=== PATIENT | female | born 1985 | race African-American/Black ===

== ENCOUNTER 2017-02-19 13:50 | Emergency (ER) | payer MEDICAID ==
[2009-10-22 06:06] VITALS: BMI 23.5
[2017-02-19 15:08] LABS: BASOPHILS 0.6 % (0-2); HEMOGLOBIN 11.1 g/dL (12-16); MCH 28.1 pg (26.0-34.0); MCHC 32.6 g/dL (31.0-37.0); MCV 86.1 fL (80.0-100.0); MEAN PLATELET VOLUME 10.3 fL (7.4-10.4); MONOCYTES 10.5 % (2-11); NEUTROPHILS 45.9 % (40-80); PLATELET COUNT 243 10x3/uL (130-400); RBC 3.95 10x6/uL (4.00-5.40); RDW 12.8 % (11.5-14.5); WBC 5.1 10x3/uL (4.8-10.8)
[2017-02-19 15:16] LABS: HCG SERUM NEGATIVE (NEGATIVE)
[2017-02-19 15:22] LABS: ALBUMIN 3.5 g/dL (3.4-5.0); ALKALINE PHOSPHATASE 60 U/L (46-116); ALT (SGPT) 13 U/L (10-68); BILIRUBIN - TOTAL 0.51 mg/dL (0.2-1.3); CALC OSMOLALITY 275 mosm/kg (275-300); CALCIUM 8.6 mg/dL (8.5-10.1); CHLORIDE - SERUM 106 mmol/L (98-107); CREATININE - SERUM 0.6 mg/dL (0.6-1.3); GLUCOSE 76 mg/dL (74-106); POTASSIUM - SERUM 3.4 mmol/L (3.5-5.1); PROTEIN - SERUM 6.8 g/dL (6.4-8.2); SODIUM 140 mmol/L (136-145); UREA NITROGEN 7 mg/dL (7-18); eGFR NON AFRICAN AMERICAN > 90 mL/min (90-120)
== END 2017-02-19 14:15 | disposition left against medical advice (07) ==
LOC: D.ER 13:50
PROVIDERS: Family Medicine
DX: R53.1 Weakness (principal)

== ENCOUNTER 2017-02-25 19:04 | Emergency (ER) | payer MEDICAID ==
[2009-10-22 06:06] VITALS: BMI 23.5
== END 2017-02-25 21:20 | disposition home or self-care (01) ==
LOC: D.ER 19:04
DX: D64.9 Anemia, unspecified (principal); F17.200 Nicotine dependence, unspecified, uncomplicated

== ENCOUNTER 2017-09-11 22:43 | Emergency (ER) | payer MEDICAID ==
[2009-10-22 06:06] VITALS: BMI 23.5
== END 2017-09-12 00:05 | disposition home or self-care (01) ==
LOC: D.ER 22:43
DX: J11.1 Influenza due to unidentified influenza virus with other respiratory manifestations (principal); R11.0 Nausea; F17.200 Nicotine dependence, unspecified, uncomplicated; R05 Cough; R09.89 Other specified symptoms and signs involving the circulatory and respiratory systems

== ENCOUNTER 2018-02-26 06:36 | Emergency (ER) | payer MEDICAID ==
[~2018-02-26] VITALS: Ht 170.2 cm; Wt 68.2 kg
[2018-02-26 06:43] VITALS: Ht 170.2 cm; Wt 68.2 kg
[2018-02-26] MEDS ORDERED: ATIVAN1 MG PO (07:47)
[2018-02-26 08:07] VITALS: BP 121/73
== END 2018-02-26 08:21 | disposition home or self-care (01) ==
LOC: D.ER 06:36
DX: F41.0 Panic disorder [episodic paroxysmal anxiety] (principal); R00.2 Palpitations; F17.200 Nicotine dependence, unspecified, uncomplicated

== ENCOUNTER 2018-11-09 12:46 | Emergency (ER) | payer MEDICAID ==
[~2018-11-09] VITALS: Ht 170.2 cm; Wt 77.3 kg
[~2018-11-09 12:46] MED LIST: ATIVAN1 MG PO
[2018-11-09 12:56] VITALS: Ht 170.2 cm; Wt 77.3 kg
[2018-11-09 13:19] LABS: APPEARANCE CLEAR (CLEAR); BILIRUBIN NEGATIVE (NEGATIVE); COLOR YELLOW (YELLOW); GLUCOSE NEGATIVE (NEGATIVE); KETONE NEGATIVE (NEGATIVE); NITRITE NEGATIVE (NEGATIVE); PROTEIN NEGATIVE (NEGATIVE)
[2018-11-09 13:22] LABS: HCG URINE NEGATIVE (NEGATIVE)
[2018-11-09 13:28] LABS: BASOPHILS 0.8 % (0-2); EOSINOPHILS 3.7 % (0-7); HEMATOCRIT 36.5 % (36.0-48.0); HEMOGLOBIN 12.1 g/dL (12-16); IMMATURE GRANULOCYTES 0.2 % (0-5); LYMPHOCYTES 42.3 % (15-50); MCH 28.3 pg (26.0-34.0); MCHC 33.2 g/dL (31.0-37.0); MCV 85.5 fL (80.0-100.0); MONOCYTES 9.2 % (2-11); NEUTROPHILS 43.8 % (40-80); PLATELET COUNT 264 10x3/uL (130-400); RBC 4.27 10x6/uL (4.00-5.40)
[2018-11-09 13:43] LABS: ALBUMIN 3.6 g/dL (3.4-5.0); ALKALINE PHOSPHATASE 68 U/L (46-116); ALT (SGPT) 15 U/L (10-68); CALC OSMOLALITY 271 mosm/kg (275-300); CALCIUM 8.5 mg/dL (8.5-10.1); CARBON DIOXIDE 30.5 mmol/L (21.0-32.0); CHLORIDE - SERUM 103 mmol/L (98-107); CREATININE - SERUM 0.7 mg/dL (0.6-1.3); GLUCOSE 80 mg/dL (74-106); POTASSIUM - SERUM 3.9 mmol/L (3.5-5.1); PROTEIN - SERUM 7.9 g/dL (6.4-8.2); SODIUM 137 mmol/L (136-145); UREA NITROGEN 9 mg/dL (7-18); eGFR NON AFRICAN AMERICAN > 90 mL/min (90-120)
[2018-11-09] MEDS ORDERED: TORADOL10 MG PO (17:01)
[2018-11-09 17:37] VITALS: BP 133/54
== END 2018-11-09 17:39 | disposition home or self-care (01) ==
LOC: D.ER 12:46
PROVIDERS: Family Medicine
DX: M54.5 Low back pain (principal)

== ENCOUNTER 2019-05-29 08:38 | Emergency (ER) | payer MEDICAID ==
[~2019-05-29] VITALS: Ht 170.2 cm; Wt 75.0 kg
[~2019-05-29 08:38] MED LIST changes: +TORADOL10 MG PO
[2019-05-29 08:42] VITALS: Ht 170.2 cm; Wt 75.0 kg
[2019-05-29] MEDS ORDERED: ULTRAM50 MG PO (09:08)
[2019-05-29 09:35] VITALS: BP 139/94
== END 2019-05-29 09:36 | disposition home or self-care (01) ==
LOC: D.ER 08:38
DX: M79.672 Pain in left foot (principal); F17.210 Nicotine dependence, cigarettes, uncomplicated

== ENCOUNTER 2019-08-03 08:28 | Emergency (ER) | payer MEDICAID ==
[2019-05-29 08:42] VITALS: Ht 170.2 cm; Wt 72.7 kg
[~2019-08-03] VITALS: Ht 170.2 cm; Wt 72.7 kg
[~2019-08-03 08:28] MED LIST changes: +ULTRAM50 MG PO
[2019-08-03 09:44] LABS: APPEARANCE CLEAR (CLEAR); BILIRUBIN NEGATIVE (NEGATIVE); COLOR YELLOW (YELLOW); GLUCOSE NEGATIVE (NEGATIVE); KETONE NEGATIVE (NEGATIVE); NITRITE NEGATIVE (NEGATIVE); PROTEIN NEGATIVE (NEGATIVE); UROBILINOGEN NORMAL (NORMAL)
[2019-08-03 09:51] LABS: BACTERIA FEW /hpf (NEGATIVE); EPITHELIAL CELLS 0-5 /hpf (0-5); RED CELLS - URINE 0-5 /hpf (0-5); WHITE CELLS - URINE 0-5 /hpf (NEGATIVE)
[2019-08-03] MEDS ORDERED: ZPAK PO (11:18)
[2019-08-03 11:25] VITALS: BP 127/84
== END 2019-08-03 09:33 | disposition home or self-care (01) ==
LOC: D.ER 08:28
PROVIDERS: Emergency Medicine
DX: J20.9 Acute bronchitis, unspecified (principal); R51 Headache; R10.9 Unspecified abdominal pain

== ENCOUNTER 2019-12-31 17:04 | Emergency (ER) | payer MEDICAID ==
[~2019-12-31] VITALS: Ht 170.2 cm; Wt 67.3 kg
[~2019-12-31 17:04] MED LIST changes: +ZPAK PO
[2019-12-31 17:07] VITALS: Ht 170.2 cm; Wt 67.3 kg
[2019-12-31 19:40] VITALS: BP 131/80
== END 2019-12-31 19:41 | disposition home or self-care (01) ==
LOC: D.ER 17:04
DX: S06.0X1A Concussion with loss of consciousness of 30 minutes or less, initial encounter (principal); W01.198A Fall on same level from slipping, tripping and stumbling with subsequent striking against other object, initial encounter; Y93.9 Activity, unspecified; Y92.9 Unspecified place or not applicable; R51 Headache

== ENCOUNTER 2020-01-11 04:20 | Emergency (ER) | payer MEDICAID ==
[~2020-01-11] VITALS: Ht 170.2 cm; Wt 67.3 kg
[2020-01-11 04:25] VITALS: Ht 170.2 cm; Wt 67.3 kg
[2020-01-11] MEDS ORDERED: PROZAC10 MG PO (04:40)
[2020-01-11] MEDS ORDERED: BUSPAR5 MG PO (04:40)
[2020-01-11] MEDS ORDERED: STERAPRED DS 1010 MG PO (06:11)
[2020-01-11 06:16] VITALS: BP 122/87
== END 2020-01-11 06:16 | disposition home or self-care (01) ==
LOC: D.ER 04:20
DX: L50.9 Urticaria, unspecified (principal)